=== PATIENT | female | born 1955 | race Caucasian/White ===

== ENCOUNTER → 2016-07-30 | Outpatient (CLI) | payer BC ==
[~2016-07-30] MED LIST: ESTR2TAB PO; HYDR-3025 PO; LEVE750T70 PO; LISD20CA3 PO; LORA0.5T PO; LOSA1TAB19 PO; METH10TA3 PO; MINO65TA PO; VILA40TA PO; ZOLP10TA5 PO; [UNRECOGNIZED DRUG - CODE] TP
--- NOTE | 2016-07-30 12:08 | RADRPT ---
PROCEDURE: XR right knee. CLINICAL INDICATION: Knee pain TECHNIQUE: AP weightbearing, PA weightbearing, lateral weightbearing and sunrise views are availab le for review. COMPARISON: 03/21/2016 FINDINGS: There is moderate osteoarthrosis involving the medial tibial femoral compartment. This is associated with joint space narrowing and osteophytosis. There is otherwise normal mineralization, architecture and alignment. No fractures are identified. N o osseous lesions are identified. The soft tissues are unremarkable. IMPRESSION: Moderate osteoarthrosis involving the medial tibial femoral compartment. RPTAT: [facility] .Lenard Machado MD, MD Date Time Electronically viewed and signed by .Lenard Machado MD, MD on 07/30/2016 12:08 .B/
== END | disposition home or self-care (01) ==
LOC: HKI 11:08
PROVIDERS: ATTEND Orthopaedic Surgery
DX: M17.11 Unilateral primary osteoarthritis, right knee (principal); M25.561 Pain in right knee
CPT/HCPCS: 73564; G0463